=== PATIENT | male | born 1950 | race Caucasian/White ===

== ENCOUNTER 2018-01-28 07:45 | Observation (INO) | payer MEDICARE ==
[2018-01-26 14:55] LABS: BASOPHILS # (AUTO) 0.04 x10^3/uL (0-0.1); BASOPHILS % (AUTO) 1 % (0-1); EOSINOPHILS % (AUTO) 1 % (1-7); LYMPHOCYTES # (AUTO) 1.88 x10^3/uL (1-3.4); LYMPHOCYTES % (AUTO) 24 % (22-44); MD NO; MEAN CORPUSCULAR HEMOGLOBIN 31.1 pg (27.5-34.5); MEAN CORPUSCULAR HGB CONC 33.4 g/dL (33.2-36.2); MEAN PLATELET VOLUME 7.2 fL (7.4-10.4); MONOCYTES # (AUTO) 0.51 x10^3/uL (0.2-0.8); MONOCYTES % (AUTO) 7 % (2-9); NEUTROPHILS # (AUTO) 5.19 x10^3/uL (1.8-6.8); NEUTROPHILS % (AUTO) 67 % (42-75); PLATELET COUNT 315 x10^3/uL (130-400); RED BLOOD COUNT 5.26 x10^6/uL (4.38-5.82); RED CELL DISTRIBUTION WIDTH 13.3 % (9.4-14.8)
[2018-01-26 15:02] LABS: CHLORIDE 108 mmol/L (98-107)
[2018-01-26 15:11] LABS: ALANINE AMINOTRANSFERASE 19 U/L (12-78); ALBUMIN 3.7 g/dL (3.4-5.0); ALKALINE PHOSPHATASE 85 U/L (45-117); ANION GAP 10 mmol/L (5-15); BILIRUBIN,TOTAL 0.6 mg/dL (0.2-1.0); CREATININE 0.91 mg/dL (0.7-1.3); PSA SCREEN 3.82 ng/mL (0.00-4.00); TOTAL PROTEIN 7.3 g/dL (6.4-8.2)
[2018-01-26 15:29] LABS: MICROSCOPIC INDICATED
[~2018-01-28] VITALS: Ht 188 cm; Wt 104.1 kg
[~2018-01-28 07:45] MED LIST: CARB1TAB47 PO; CEPH-376 PO; CHOL100012 PO; CYAN500T2 PO; DOCU240C53 PO; FINA5TAB4 PO; LACT1CAP37 PO; PRIM250T PO; PROP20TA PO; TAMS0.4C2 PO
[2018-01-28] MEDS ORDERED: LACTATED RINGERS 1,000 ML IV SCH (08:34)
[2018-01-28] MEDS ORDERED: MIDAZOLAM 1 MG/ML, 2ML ONE (08:47)
[2018-01-28] MEDS ORDERED: FENTANYL PF 100 MCG/2ML ONE ×2 (08:48→10:51)
[2018-01-28] MEDS ORDERED: ONDANSETRON ODT 8 MG PO ONE (09:00)
[2018-01-28] MEDS ORDERED: ACETAMINOPHEN 500 MG TABLET PO ONE (09:00)
[2018-01-28] MEDS ORDERED: LIDOCAINE-MPF 1%, 2ML INFIL ONE (09:00)
[2018-01-28] MEDS ORDERED: GABAPENTIN 300 MG CAPSULE PO ONE (09:00)
[2018-01-28] MEDS ORDERED: CEFTRIAXONE 1,000 MG ONE (09:32)
[2018-01-28] MEDS ORDERED: PROPOFOL 10 MG/ML, 20ML ONE (09:48)
[2018-01-28] MEDS ORDERED: DEXAMETHASONE 4 MG/ML, 1ML ONE (09:48)
[2018-01-28] MEDS ORDERED: CEFAZOLIN 1,000 MG ONE (09:48)
[2018-01-28] MEDS ORDERED: ALBUTEROL/IPRATROPIUM 2.5MG/0.5MG, 3 ML NPPB PRN (10:00)
[2018-01-28] MEDS ORDERED: ONDANSETRON ODT 8 MG PO PRN (10:00)
[2018-01-28] MEDS ORDERED: OXYcodone 5 MG/5 ML ORAL.SOL UDC PO PRN (10:00)
[2018-01-28] MEDS ORDERED: PROMETHAZINE 25 MG SUPP PR PRN (10:00)
[2018-01-28] MEDS ORDERED: FUROSEMIDE 20 MG/2 ML ONE (10:17)
[2018-01-28] MEDS: D5%-LACTATED RINGERS 1,000 ML IV SCH ×2 (10:31→17:12)
[2018-01-28] MEDS ORDERED: OPIUM/BELLADONNA SUPP.RECT 16.2-60 MG ONE (10:51)
[2018-01-28] MEDS ORDERED: OXYcodone 5 MG/5 ML ORAL.SOL UDC ONE (10:52)
[2018-01-28] MEDS: FENTANYL PF 100 MCG/2ML IV PRN ×4 (10:55→11:22)
[2018-01-28] MEDS ORDERED: TEMAZEPAM 15 MG CAPSULE PO PRN (11:00)
[2018-01-28] MEDS ORDERED: OPIUM/BELLADONNA SUPP.RECT 16.2-60 MG PR PRN (11:00)
[2018-01-28] MEDS ORDERED: ONDANSETRON 2MG/ML, 2ML IV PRN (11:00)
[2018-01-28] MEDS ORDERED: HYDROcodone/APAP 5/325 TABLET PO PRN (11:00)
[2018-01-28 11:56] LABS: ALBUMIN 3.3 g/dL (3.4-5.0); ANION GAP 7 mmol/L (5-15); CALCIUM 8.4 mg/dL (8.5-10.1); CHLORIDE 106 mmol/L (98-107); CREATININE 0.92 mg/dL (0.7-1.3)
[2018-01-28 15:09] VITALS: BP 93/64
[2018-01-28] MEDS: CARBIDOPA/LEVODOPA 25 MG/100 MG TABLET PO SCH ×2 (15:17→21:12)
[2018-01-28] MEDS: CEPHALEXIN 500 MG CAPSULE PO SCH ×2 (15:17→21:12)
[2018-01-28] MEDS ORDERED: CARBIDOPA/LEVODOPA 25 MG/100 MG TABLET PO SCH (16:00)
[2018-01-28] MEDS: CEFAZOLIN PMX 1GM/50ML 50 ML IVPB SCH (17:08)
[2018-01-28] MEDS ORDERED: SODIUM CHLORIDE 0.9% 1,000ML IVBOLUS ONE (18:30)
[2018-01-28 18:40] VITALS: BP 89/66
[2018-01-28 18:43] LABS: ANION GAP 6 mmol/L (5-15); CALCIUM 8.3 mg/dL (8.5-10.1); CHLORIDE 105 mmol/L (98-107); CREATININE 1.01 mg/dL (0.7-1.3)
[2018-01-28] MEDS ORDERED: PRIMIDONE 250 MG TABLET PO SCH (21:00)
[2018-01-28] MEDS: PROPRANOLOL 20 MG TABLET PO SCH (21:10)
[2018-01-28] MEDS: LACTOBACILLUS CHEW TABLET PO SCH (21:12)
[2018-01-28] MEDS: CHOLECALCIFEROL 1,000 UNIT TABLET PO SCH (21:12)
[2018-01-28 21:15] VITALS: BP 93/55
[2018-01-28] MEDS: PRIMIDONE 250 MG TABLET PO SCH (21:48)
[2018-01-28 23:02] VITALS: BP 85/49
[2018-01-29] VITALS (9 sets, daily range): BP systolic 84–118; BP diastolic 50–68
[2018-01-29] MEDS: CEFAZOLIN PMX 1GM/50ML 50 ML IVPB SCH (01:07)
[2018-01-29] MEDS: CARBIDOPA/LEVODOPA 25 MG/100 MG TABLET PO SCH ×4 (06:26→23:50)
[2018-01-29] MEDS: CEPHALEXIN 500 MG CAPSULE PO SCH ×4 (06:26→23:51)
[2018-01-29] MEDS: D5%-LACTATED RINGERS 1,000 ML IV SCH ×3 (06:26→22:00)
[2018-01-29] MEDS ORDERED: DOCUSATE 100 MG CAPSULE ONE (07:44)
[2018-01-29] MEDS: TAMSULOSIN 0.4 MG CAP.ER.24H PO SCH (07:55)
[2018-01-29] MEDS: PRIMIDONE 50 MG TABLET PO SCH (07:55)
[2018-01-29] MEDS: LACTOBACILLUS CHEW TABLET PO SCH (07:55)
[2018-01-29] MEDS: DOCUSATE CALCIUM 240 MG CAPSULE PO SCH (07:56)
[2018-01-29] MEDS: FINASTERIDE 5 MG TABLET PO SCH (07:56)
[2018-01-29] MEDS: CYANOCOBALAMIN 1,000 MCG TABLET PO SCH (07:57)
[2018-01-29] MEDS: CHOLECALCIFEROL 1,000 UNIT TABLET PO SCH (07:57)
[2018-01-29] MEDS ORDERED: PRIMIDONE 50 MG TABLET PO SCH (09:00)
[2018-01-29] MEDS ORDERED: PRIMIDONE 250 MG TABLET PO SCH (21:00)
[2018-01-29] MEDS ORDERED: PRIMIDONE 50 MG TABLET ONE (23:47)
[2018-01-29] MEDS: PROPRANOLOL 20 MG TABLET PO SCH (23:51)
[2018-01-29] MEDS: PRIMIDONE 250 MG TABLET PO SCH (23:52)
[2018-01-30 02:03] VITALS: BP 92/55
[2018-01-30] MEDS: D5%-LACTATED RINGERS 1,000 ML IV SCH (06:00)
[2018-01-30] MEDS: CEPHALEXIN 500 MG CAPSULE PO SCH ×2 (07:39→11:20)
[2018-01-30] MEDS: TAMSULOSIN 0.4 MG CAP.ER.24H PO SCH (07:40)
[2018-01-30] MEDS: CYANOCOBALAMIN 1,000 MCG TABLET PO SCH (07:40)
[2018-01-30] MEDS: LACTOBACILLUS CHEW TABLET PO SCH (07:40)
[2018-01-30] MEDS: PRIMIDONE 50 MG TABLET PO SCH (07:40)
[2018-01-30] MEDS: CARBIDOPA/LEVODOPA 25 MG/100 MG TABLET PO SCH ×2 (07:40→11:20)
[2018-01-30] MEDS: FINASTERIDE 5 MG TABLET PO SCH (07:40)
[2018-01-30] MEDS: CHOLECALCIFEROL 1,000 UNIT TABLET PO SCH (07:41)
[2018-01-30] MEDS: DOCUSATE CALCIUM 240 MG CAPSULE PO SCH (07:42)
[2018-01-30 07:47] VITALS: BP 121/77
[2018-01-30 13:20] VITALS: BP 107/65
== END 2018-01-30 13:46 | disposition home or self-care (01) ==
LOC: OUT 07:45 → ORIP 10:31 → 4NOR 11:48 → DCLOUNGE 01-30 13:33
PROVIDERS: ADMIT Urology; ATTEND Urology
DX: N40.1 Benign prostatic hyperplasia with lower urinary tract symptoms (principal); R33.9 Retention of urine, unspecified
CPT/HCPCS: 36415; 52601; 80048; 80053; 81001; 82040; 84153; 85018; 85025; 87086; 88305; 93005; 96365; 96366; G0378; J0690; J0696; J1100; J1940; J2704; J3010; J7030; J7121; Q0162; J2250; G0103